=== PATIENT | male | born 1950 | race Caucasian/White ===

== ENCOUNTER 2017-01-20 13:30 | Emergency (ER) | payer BC ==
[2017-01-20 14:25] VITALS: BP 147/66
[2017-01-20] MEDS ORDERED: Tetan/Diph/Pertus SYR(Tdap)* 0.5 ML SYR(BOOSTRIX) use SYR IM ONE (14:59)
[2017-01-20] MEDS ORDERED: Lidocaine 2% 10 ML* VIAL INJ ONE (15:02)
[2017-01-20] MEDS ORDERED: Lidocaine 2% PF * 5 ML VIAL ONE (15:05)
--- NOTE | 2017-01-20 15:13 | RAD ---
Indication: Right index finger injury. 3 views of the right index finger demonstrates no definite fracture. Degenerative changes of the distal interphalangeal joint is noted. Soft tissue defect is noted in the distal finger. IMPRESSION: No fracture is identified. Soft tissue laceration is noted.
--- NOTE | 2017-01-20 15:42 | UC ---
Skin Complaint HPI - HPI Summary HPI Summary: injury to right index finger, hit the finger with a hammer , + laceration of the distal finger - History of Current Complaint Chief Complaint: UCLaceration Time Seen by Provider: 01/20/17 14:31 Stated Complaint: RIGHT INDEX FINGER LACERATION Hx Obtained From: Patient Onset/Duration: Sudden Onset, Lasting Hours - 2, Still Present Timing: Constant Onset Severity: Moderate Current Severity: Moderate Location: Hand (Right) - index finger Aggravating: Touch Alleviating: Other - pressure Associated Signs & Symptoms: Positive: Tenderness - Allergy/Home Medications Allergies/Adverse Reactions: Allergies Allergy/AdvReac Type Severity Reaction Status Date / Time No Known Allergies Allergy Verified 01/20/17 14:30 Home Medications: Home Medications Aspirin [Aspirin 81 MG TAB] 81 mg PO BEDTIME 01/20/17 [History Confirmed ] Cholecalciferol [Vitamin D3] 50,000 unit PO WEEKLY 01/20/17 [History Confirmed 01/20/17] Insulin Degludec [Tresiba Flextouch] 24 unit SC DAILY 01/20/17 [History Confirmed 01/20/17] Insulin LISPRO* [HumaLOG*] 0 units SUBCUT DIRECTED 01/20/17 [History Confirmed 01/20/17] Lisinopril [Lisinopril 40 MG-] 40 mg PO DAILY 01/20/17 [History Confirmed ] Metoprolol Tartrate TAB* [Lopressor TAB*] 50 mg PO DAILY 01/20/17 [History Confirmed 01/20/17] Simvastatin TAB(NF) [Zocor(NF)] 40 mg PO 1700 01/20/17 [History Confirmed ] Review of Systems Constitutional: Negative Eyes: Negative ENT: Negative All Other Systems Reviewed And Are Negative: Yes PMH/Surg Hx/FS Hx/Imm Hx Endocrine History: Diabetes - Surgical History Surgical History: Yes Surgery Procedure, Year, and Place: cardiac stents - Family History Known Family History: Negative: Diabetes - Social History Alcohol Use: None Substance Use Type: None Smoking Status (MU): Former Smoker When Did the Patient Quit Smoking/Using Tobacco: 14 years ago - Immunization History Most Recent Tetanus Shot: unknown Physical Exam Triage Information Reviewed: Yes Appearance: Well-Appearing, No Pain Distress, Well-Nourished Vital Signs: Initial Vital Signs Temp 98.2 F 07/15/17 14:21 Pulse 61 01/20/17 14:21 Resp 17 01/20/17 14:21 BP 147/66 01/20/17 14:21 Pulse Ox 100 01/20/17 14:21 Vital Signs Reviewed: Yes Eyes: Positive: Conjunctiva Clear ENT: Positive: Normal ENT inspection, Hearing grossly normal, Pharynx normal Neck: Positive: Supple, Nontender, No Lymphadenopathy Respiratory: Positive: Chest non-tender, Lungs clear, Normal breath sounds Cardiovascular: Positive: RRR, No Murmur, Pulses Normal Skin: Positive: Other - laceration distal right index finger : 2 cm Laceration Repair - Laceration Repair 1 Description: Linear Laceration Size After Repair: Length (cm) - 2, Width (mm) - 2, Depth (mm) - 2 Type Injection: Local Anesthesia Used: 2.0% Lido - 5 cc Irrigation With Pressure Irrigation Device: Yes Closure Material: Sutures Closure Method: Single Layer Suture Of: Skin Suture Type: Nylon - 5.0 Course/Dx - Diagnoses Provider Diagnoses: laceration right index finger Discharge - Discharge Plan Condition: Stable Disposition: HOME Prescriptions: Cephalexin CAP* [Keflex CAP*] 500 mg PO TID #21 cap Patient Education Materials: Finger Laceration (ED) Forms: *Work Release Additional Instructions: follow up in 10 days for suture removal
== END 2017-01-20 15:45 | disposition home or self-care (01) ==
LOC: UCCORT 13:30
DX: S61.210A Laceration without foreign body of right index finger without damage to nail, initial encounter (principal); W22.8XXA Striking against or struck by other objects, initial encounter; Y93.9 Activity, unspecified; Y92.9 Unspecified place or not applicable; Z23 Encounter for immunization; E11.9 Type 2 diabetes mellitus without complications; Z79.4 Long term (current) use of insulin; Z95.5 Presence of coronary angioplasty implant and graft; Z87.891 Personal history of nicotine dependence
CPT/HCPCS: 12001; 73140; 90471; 90715; 99202; G0463; J2001

== ENCOUNTER 2017-01-31 19:51 | Emergency (ER) | payer BC ==
[2017-01-31 19:59] VITALS: BP 161/73
--- NOTE | 2017-01-31 20:05 | UC ---
HPI Wound/Suture Re-check - HPI Summary HPI Summary: 66 year old male presents for removal of stitches from right 2nd finger. - History Of Current Complaint Chief Complaint: UCSkin Stated Complaint: REMOVE STITCHES Time Seen by Provider: 01/31/17 20:04 - Allergies/Home Medications Allergies/Adverse Reactions: Allergies Allergy/AdvReac Type Severity Reaction Status Date / Time No Known Allergies Allergy Verified 01/31/17 19:59 PMH/Surg Hx/FS Hx/Imm Hx - Surgical History Surgical History: Yes Surgery Procedure, Year, and Place: cardiac stents - Family History Known Family History: Negative: Diabetes - Social History Alcohol Use: None Substance Use Type: None Smoking Status (MU): Former Smoker When Did the Patient Quit Smoking/Using Tobacco: 14 years ago - Immunization History Most Recent Tetanus Shot: unknown Review of Systems Constitutional: Negative Skin: Other - right 2 nd finger laceration with sutures Eyes: Negative ENT: Negative Respiratory: Negative Cardiovascular: Negative Gastrointestinal: Negative Genitourinary: Negative Motor: Negative Neurovascular: Negative Musculoskeletal: Negative Neurological: Negative Psychological: Negative All Other Systems Reviewed And Are Negative: Yes Physical Exam Triage Information Reviewed: Yes Vital Signs: Initial Vital Signs Pulse 67 01/31/17 19:56 Resp 16 01/31/17 19:56 BP 161/73 01/31/17 19:56 Pulse Ox 97 01/31/17 19:56 Eye Exam: Normal ENT Exam: Normal Dental Exam: Normal Neck exam: Normal Neck: Positive: 1 Respiratory Exam: Normal Cardiovascular Exam: Normal Abdominal Exam: Normal Musculoskeletal Exam: Normal Neurological Exam: Normal Psychological Exam: Normal Skin: Positive: Other - right 2nd finger laceration with sutures wound c/d/i Course/Dx - Differential Dx - Laceration/Wound Provider Diagnoses: suture removal # 4 Discharge - Discharge Plan Condition: Stable Disposition: HOME Patient Education Materials: Stitches Removal (ED) Referrals: Cora Cui MD [Primary Care Provider] - If Needed
== END 2017-01-31 20:17 | disposition home or self-care (01) ==
LOC: UCCORT 19:51
DX: Z48.02 Encounter for removal of sutures (principal); Z95.5 Presence of coronary angioplasty implant and graft; Z87.891 Personal history of nicotine dependence

== ENCOUNTER 2017-03-12 11:34 | Emergency (ER) | payer BC ==
[2017-03-12 12:16] VITALS: BP 158/73
--- NOTE | 2017-03-12 12:54 | UC ---
Upper Extremity HPI - HPI Summary HPI Summary: Pt c/o right wrist and shoulder pain s/p slippiong while walking up ramp and falling from standing position on to right shoulder and right wrist. Not FOOSH. - History of Current Complaint Chief Complaint: UCUpperExtremity Stated Complaint: RIGHT WRIST AND SHOULDER PAIN Time Seen by Provider: 03/12/17 12:31 Hx Obtained From: Patient ?: No Onset/Duration: Sudden Onset Severity Initially: Moderate Severity Currently: Mild Location Of Pain: Is Discrete @ - right shoulder right wrist Character: Dull, Aching Aggravating Factor(s): Movement Alleviating Factor(s): Ice, Rest Associated Signs And Symptoms: Positive: Swelling - right wrist, Redness - right wrist - Allergies/Home Medications Allergies/Adverse Reactions: Allergies Allergy/AdvReac Type Severity Reaction Status Date / Time No Known Allergies Allergy Verified 01/31/17 19:59 Home Medications: Home Medications Aspirin TAB* [Aspirin 325 MG TAB*] 975 mg PO DAILY 03/12/17 [History Confirmed 03/12/17] PMH/Surg Hx/FS Hx/Imm Hx Previously Healthy: No - osteopenia Endocrine History: Diabetes Cardiovascular History: Cardiac Disease, Hypertension - Surgical History Surgical History: Yes Surgery Procedure, Year, and Place: cardiac stents - Family History Known Family History: Negative: Diabetes - Social History Occupation: Retired Lives: With Family Alcohol Use: None Substance Use Type: None Smoking Status (MU): Former Smoker Have You Smoked in the Last Year: No When Did the Patient Quit Smoking/Using Tobacco: 14 years ago - Immunization History Most Recent Tetanus Shot: unknown Review of Systems Constitutional: Negative Skin: Bruising - right wrist Eyes: Negative ENT: Negative Respiratory: Negative Cardiovascular: Negative Gastrointestinal: Negative Genitourinary: Negative Motor: Negative, Decreased ROM - right shoulder, right wrist Neurovascular: Negative Musculoskeletal: Arthralgia - right shoulder, right wrist Neurological: Negative Psychological: Negative All Other Systems Reviewed And Are Negative: Yes Physical Exam Triage Information Reviewed: Yes Appearance: Well-Appearing Vital Signs: Initial Vital Signs Temp 98.3 F 03/12/17 12:10 Pulse 53 03/12/17 12:10 Resp 16 03/12/17 12:10 BP 158/73 03/12/17 12:10 Pulse Ox 100 03/12/17 12:10 Vital Signs Reviewed: Yes Eye Exam: Normal Neck exam: Normal Respiratory Exam: Normal Cardiovascular Exam: Normal Musculoskeletal Exam: Other Musculoskeletal: Positive: ROM Limited @ - right shoulder, right wrist, Edema @ - right wrist, Neurological Exam: Normal Psychological Exam: Normal Skin Exam: Other - erythema right reflex Upper Extremity Course/Dx - Course Course Of Treatment: I discussedw ith the pt the results of the shoulder and wrist xrays. I refereed the pt to an orthopedic provider for follow up regarding possible right wrist fracture and ligament tear. Pt verbalized understanding and agreed to plan of care. - Differential Dx/Diagnosis Differential Diagnosis/HQI/PQRI: Contusion, Fracture (Closed) Provider Diagnoses: possible right wrist fracture. right shoulder contusion. xray impression right wrist: IMPRESSION: 1. Age indeterminate scapholunate interval diastases and increased scapholunate angle. favoring scapholunate ligament tear. 2. Potential nondisplaced transverse fracture at the waist of the scaphoid. 3. Polyarticular osteoarthritis. 4. Peripheral vascular disease. Discharge - Discharge Plan Condition: Stable Disposition: HOME Patient Education Materials: Scaphoid Fracture (ED), Suspected Fracture (ED) Referrals: Cora Cui MD [Primary Care Provider] - Valentina Shah MD [Medical Doctor] - Felix Hernandez MD [Medical Doctor] - Additional Instructions: Please follow up with your PCP and one of the orthopedic providers as listed.
--- NOTE | 2017-03-12 13:11 | RAD ---
INDICATION: RIGHT wrist pain post fall on outstretched arm. COMPARISON: None. TECHNIQUE: AP, lateral, and oblique views RIGHT wrist. REPORT: Mild diastases of the scapholunate interval. Increased scapholunate angle. 0.8 cm intraosseous cyst at the proximal pole to waist of the scaphoid. Subtle cortical lucency along the lesser curve of the waist of the scaphoid may represent a nondisplaced scaphoid fracture. Polyarticular osteoarthritis most prominent at the distal radial ulnar joint moderate in severity. Vascular calcifications. Mild soft tissue swelling about the wrist. IMPRESSION: 1. Age indeterminate scapholunate interval diastases and increased scapholunate angle favoring scapholunate ligament tear. 2. Potential nondisplaced transverse fracture at the waist of the scaphoid. 3. Polyarticular osteoarthritis. 4. Peripheral vascular disease.
--- NOTE | 2017-03-12 13:12 | RAD ---
Indication: RIGHT shoulder and wrist pain post fall on outstretched arm. Comparison: No relevant prior exams available on the [facility] PACS for comparison. Technique: Internal and external rotation AP and scapular Y views RIGHT shoulder Report: Normal acromioclavicular and glenohumeral joint alignment. No cortical disruption or suspicious trabecular irregularity to suggest fracture. Mild osteophytosis at the acromioclavicular and glenohumeral joints and moderate joint space narrowing at both articulations. Unremarkable soft tissue contours. IMPRESSION: Negative for fracture or dislocation. Osteoarthritis.
== END 2017-03-12 13:41 | disposition home or self-care (01) ==
LOC: UCCORT 11:34
DX: S40.011A Contusion of right shoulder, initial encounter (principal); W01.0XXA Fall on same level from slipping, tripping and stumbling without subsequent striking against object, initial encounter; M19.031 Primary osteoarthritis, right wrist; I73.9 Peripheral vascular disease, unspecified
CPT/HCPCS: 99212; G0463

== ENCOUNTER 2018-04-21 09:34 | Emergency (ER) | payer MEDICARE ==
[2018-04-21 10:09] VITALS: BP 155/62
[2018-04-21] MEDS ORDERED: Dexamethasone IV* 4 MG/ML 1 ML (4 MG) PO ONE (10:43)
--- NOTE | 2018-04-21 10:47 | UC ---
General HPI - HPI Summary HPI Summary: Patient presents complaining of being ill over the past 2-3 weeks. He notes that at the onset, he experience some sinus congestion and then later on developed laryngitis. In the interim, he has experienced some issues with headache and pressure in the ears. He has self treated with multiple over-the- counter medications with no relief. He denies any associated fever or shortness of breath or chest pain but reports congestive cough. This past medical history is significant for hypertension, hyperlipidemia coronary artery disease and diabetes. He admits to having elevations in his blood sugar with this current illness - History of Current Complaint Chief Complaint: UCRespiratory Stated Complaint: COUGH CONGESTION Time Seen by Provider: 04/21/18 10:11 Hx Obtained From: Patient Pain Intensity: 4 Alleviating: nothing Associated Signs & Symptoms: Positive: Cough, Headache. Negative: Chest Pain, Fever, SOB, Wheezing - Allergy/Home Medications Allergies/Adverse Reactions: Allergies Allergy/AdvReac Type Severity Reaction Status Date / Time No Known Allergies Allergy Verified 04/21/18 10:02 Home Medications: Home Medications Ergocalciferol (Vitamin D2) [Vitamin D2] 50,000 unit PO WEEKLY 04/21/18 [ History Confirmed 04/21/18] Insulin GLARGINE(*) [Lantus(*)] 12 units SUBCUT DAILY 04/21/18 [History Confirmed 04/21/18] Lisinopril TAB* [Prinivil TAB*] 10 mg PO DAILY 04/21/18 [History Confirmed 04/21] PMH/Surg Hx/FS Hx/Imm Hx Endocrine History: Diabetes, Dyslipidemia Cardiovascular History: Cardiac Disease, Hypertension - Surgical History Surgical History: Yes Surgery Procedure, Year, and Place: Bilateral Cataract Extractions, 2014, [place]; Coronary Artery Stents, 2011 2008, [facility]; Ear Tube, ~, [place] - Family History Known Family History: Negative: Diabetes - Social History Occupation: Employed Part-time Lives: With Family Alcohol Use: None Substance Use Type: None Smoking Status (MU): Former Smoker Length of Time of Smoking/Using Tobacco: > 1 PPD x 30 Years Have You Smoked in the Last Year: No When Did the Patient Quit Smoking/Using Tobacco: 2000 - Immunization History Most Recent Tetanus Shot: 01/20/17 Vaccination Up to Date: Yes Review of Systems Constitutional: Negative Skin: Negative Eyes: Negative ENT: Sore Throat, Ear Ache, Sinus Congestion, Sinus Pain/Tenderness Respiratory: Cough Cardiovascular: Negative Gastrointestinal: Negative Genitourinary: Negative Motor: Negative Neurovascular: Negative Musculoskeletal: Negative Neurological: Headache Psychological: Negative All Other Systems Reviewed And Are Negative: Yes Physical Exam Triage Information Reviewed: Yes Appearance: Well-Appearing Vital Signs: Initial Vital Signs Temp 99.5 F 04/21/18 10:01 Pulse 80 04/21/18 10:01 Resp 24 04/21/18 10:01 BP 155/62 04/21/18 10:01 Pulse Ox 99 04/21/18 10:01 Vital Signs Reviewed: Yes Eyes: Positive: Conjunctiva Clear ENT: Positive: Pharynx normal, Nasal congestion, TMs normal, Hoarse voice, Sinus tenderness, Uvula midline. Negative: Nasal drainage, Trismus, Muffled voice Neck: Positive: Supple, Nontender, No Lymphadenopathy Respiratory: Positive: Lungs clear, Normal breath sounds, Other: - Frequent congested - bronchospastic cough. Cardiovascular: Positive: RRR, No Murmur Abdomen Description: Positive: Nontender, No Organomegaly, Soft Bowel Sounds: Positive: Present Musculoskeletal: Positive: ROM Intact Neurological: Positive: Alert Psychological: Positive: Age Appropriate Behavior Skin Exam: Normal Course/Dx - Course Course Of Treatment: non toxic, not hypoxic and no concern for pneumonia. duration of illnees and comorbid conditions, will cover for presumptive bacterial infection. will tx the laryngitis with single dose decadron. benefit of the tx outweighs risk of transient increase BS. pt advised may have BS increase from the decadron. will tx cough with albuterol inhaler and tessalon perles - Differential Dx - Multi-Symptom Provider Diagnoses: sinusitis, laryngitis, bronchitis Discharge - Sign-Out/Discharge Documenting (check all that apply): Patient Departure All imaging exams completed and their final reports reviewed: No Studies - Discharge Plan Condition: Stable Disposition: HOME Prescriptions: Albuterol HFA INHALER* [Ventolin HFA Inhaler*] 2 puff INH Q6H #1 mdi Amoxicillin/Clavulanate TAB* [Augmentin TAB 875*] 875 mg PO BID 10 Days #20 tab Benzonatate CAP* [Tessalon 100 MG CAP*] 100 mg PO TID PRN #10 cap PRN Reason: Cough Patient Education Materials: Sinusitis (ED), Laryngitis (ED), Acute Bronchitis (ED) Referrals: Cora Cui MD [Primary Care Provider] - 7 Days - Billing Disposition and Condition Condition: STABLE Disposition: Home
== END 2018-04-21 11:01 | disposition home or self-care (01) ==
LOC: UCCORT 09:34
DX: J32.9 Chronic sinusitis, unspecified (principal); J04.0 Acute laryngitis; J40 Bronchitis, not specified as acute or chronic; E11.9 Type 2 diabetes mellitus without complications; I10 Essential (primary) hypertension; Z87.891 Personal history of nicotine dependence
CPT/HCPCS: 99212; G0463; J1100